=== PATIENT | female | born 1945 | race Asian ===

== ENCOUNTER 2016-11-10 15:57 | Emergency (ER) | payer MEDICARE, OTHER ==
[~2016-11-10] VITALS: Ht 157.5 cm; Wt 61.7 kg
[~2016-11-10 15:57] MED LIST: AMLO10TA2 PO; COZAAR PO; INSU100V7 SQ; METF10002 PO; METO50TA3 PO; SIMV10TA6 PO
[2016-11-10] MEDS ORDERED: INSU300I SQ (16:09)
[2016-11-10] MEDS ORDERED: IV NORMAL SALINE 500 ML BAG IV ONE (16:45)
[2016-11-10 17:10] LABS: BASOPHILS # (AUTO) 0.1 K/uL (0.0-8.0); BASOPHILS % (AUTO) 0.6 % (0.0-2.0); EOSINOPHILS # (AUTO) 0.1 K/uL (0.0-0.7); EOSINOPHILS % (AUTO) 1.3 % (0.0-7.0); HEMATOCRIT 39.6 % (37-47); HEMOGLOBIN 13.1 G/DL (12.0-16.0); LYMPHOCYTES % (AUTO) 26.6 % (20.5-51.5); MEAN CORPUSCULAR HEMOGLOBIN 29.2 UUG (27.0-31.0); MEAN CORPUSCULAR HGB CONC 33 g/dL (32.0-37.0); MEAN CORPUSCULAR VOLUME 88.1 FL (81.0-99.0); MONOCYTES # (AUTO) 0.5 K/UL (0.1-1.30); MONOCYTES % (AUTO) 4.2 % (0.0-11.0); NEUTROPHILS # (AUTO) 7.5 K/UL (1.8-8.9); NEUTROPHILS % (AUTO) 67.3 % (38.5-71.5); PLATELET COUNT (AUTO) 307 K/UL (150-450); WHITE BLOOD COUNT (AUTO) 11.2 K/UL (4.0-11.2)
[2016-11-10 17:13] LABS: CARBON DIOXIDE 25 mmol/L (21-32); CHLORIDE 92 mmol/L (98-107); CREATININE 1.1 mg/dL (0.6-1.3); GLUCOSE 221 mg/dL (74-106); POTASSIUM 4.9 mmol/L (3.5-5.1); UREA NITROGEN, BLOOD 17 mg/dL (7-18)
[2016-11-10 17:19] LABS: ALANINE AMINOTRANSFERASE 25 U/L (14-59); ALKALINE PHOSPHATASE 76 U/L (50-136); ASPARTATE AMINOTRANSFERASE 25 U/L (15-37); BILIRUBIN,DIRECT 0.2 mg/dL (0.0-0.2); BILIRUBIN,TOTAL 0.7 mg/dL (0.2-1.0); TOTAL PROTEIN, SERUM 9.1 g/dL (6.4-8.2)
--- NOTE | 2016-11-10 18:07 | NUR ---
Patient is eating dinner with good appetite, NAd, denies dizziness at this time
--- NOTE | 2016-11-10 18:14 | NUR ---
IV removed. Catheter intact and site benign. Pressure and 4x4 gauze applied to site. No bleeding noted. Patient discharged to home in stable conditon. Written and verbal after care instructions given to patient. Patient verbalizes understanding of instructions.
== END 2016-11-10 18:15 | disposition home or self-care (01) ==
LOC: ER 16:03
DX: R42 Dizziness and giddiness (principal); I10 Essential (primary) hypertension; F41.9 Anxiety disorder, unspecified; Z79.4 Long term (current) use of insulin; E11.9 Type 2 diabetes mellitus without complications
CPT/HCPCS: 36415; 80048; 80076; 84484; 85025; 85730; 93005; 96360; 99285; A4663; J7040; 70030-TC

== ENCOUNTER 2017-02-10 07:46 | Inpatient (IN) | payer OTHER, MEDICARE ==
[~2017-02-10] VITALS: Ht 157.5 cm; Wt 61.2 kg
[~2017-02-10 07:46] MED LIST changes: -INSU100V7 SQ; +INSU300I SQ
--- NOTE | 2017-02-10 07:58 | NUR ---
Dr Zambrano at the bedside for eval and exam.
[2017-02-10 08:28] LABS: BASOPHILS # (AUTO) 0.1 K/uL (0.0-8.0); BASOPHILS % (AUTO) 1.2 % (0.0-2.0); EOSINOPHILS # (AUTO) 0.1 K/uL (0.0-0.7); EOSINOPHILS % (AUTO) 1.2 % (0.0-7.0); HEMATOCRIT 33.1 % (31.2-41.9); HEMOGLOBIN 11.8 g/dL (10.9-14.3); LYMPHOCYTES # (AUTO) 2.1 K/uL (20.0-40.0); LYMPHOCYTES % (AUTO) 24.3 % (20.5-51.5); MEAN CORPUSCULAR HEMOGLOBIN 31.6 uug (24.7-32.8); MEAN CORPUSCULAR HGB CONC 36 g/dL (32.3-35.6); MEAN CORPUSCULAR VOLUME 88.7 fL (75.5-95.3); MONOCYTES # (AUTO) 0.5 K/uL (2.0-10.0); MONOCYTES % (AUTO) 5.4 % (0.0-11.0); NEUTROPHILS # (AUTO) 5.8 K/uL (1.8-8.9); NEUTROPHILS % (AUTO) 67.9 % (38.5-71.5); PLATELET COUNT (AUTO) 271 K/uL (179-408); RED BLOOD CELL COUNT(AUTO) 3.74 MIL/uL (3.63-4.92); WHITE BLOOD COUNT (AUTO) 8.6 K/uL (3.8-11.8)
[2017-02-10 08:36] LABS: CARBON DIOXIDE 25 mmol/L (21-32); CHLORIDE 90 mmol/L (98-107); CREATININE 0.9 mg/dL (0.6-1.3); GLUCOSE 206 mg/dL (74-106); POTASSIUM 4.2 mmol/L (3.5-5.1); UREA NITROGEN, BLOOD 16 mg/dL (7-18)
[2017-02-10 08:42] LABS: ALANINE AMINOTRANSFERASE 29 U/L (14-59); ALKALINE PHOSPHATASE 61 U/L (50-136); ASPARTATE AMINOTRANSFERASE 21 U/L (15-37); BILIRUBIN,DIRECT 0.2 mg/dL (0.0-0.2); BILIRUBIN,TOTAL 0.8 mg/dL (0.2-1.0); TOTAL PROTEIN, SERUM 7.8 g/dL (6.4-8.2)
[2017-02-10 08:56] LABS: THYROID STIMULATING HORMONE 1.015 mIU/mL (0.358-3.740)
--- NOTE | 2017-02-10 09:05 | NUR ---
belonging list completed and MRSA collected and sent to lab.
[2017-02-10 09:20] LABS: *BILIRUBIN,URIN NEGATIVE (NEGATIVE); *BLOOD, URINE Trace-lysed (NEGATIVE); *CLARITY,URINE CLEAR (CLEAR); *COLOR,URINE YELLOW (YELLOW); *KETONES,URINE NEGATIVE (NEGATIVE); *PROTEIN,URINE 1+ (NEGATIVE); *UROBILINOGEN,URINE 0.2 E.U./dl (NORMAL); LEUKOCYTE ESTERASE ,URINE NEGATIVE (NEGATIVE); NITRITE, URINE NEGATIVE (NEGATIVE)
--- NOTE | 2017-02-10 09:20 | NUR ---
NEW PATIENT TO ROOM 204 AWAKE ALERT COOPERATE WELL NO PAIN OR SOB VS TAKEN STABLE STATE HUNGRY ON FALL PRECAUTION BED ALARM ON AND CALL LIGHT WITHIN REACH
[2017-02-10 09:30] VITALS: BP 156/52
[2017-02-10 09:43] LABS: UGLUCOSE 2+ (NEGATIVE)
[2017-02-10 09:45] LABS: BACTERIA,URINE NONE SEEN /HPF (NONE SEEN); RBC,URINE 0-3 /HPF (0-3); SQUAMOUS EPITHELIAL CELL,UR FEW /HPF (NONE SEEN); WBC,URINE 0-3 /HPF (0-3)
--- NOTE | 2017-02-10 10:00 | NUR ---
IVF INFUSION WELL EAT BREAKFAST WITH GOOD APPETITE NO PAIN OR N/V
[2017-02-10] MEDS ORDERED: METO25TA3 PO (10:32)
[2017-02-10] MEDS ORDERED: SIMV20TA2 PO (10:33)
[2017-02-10] MEDS ORDERED: LOSA100T3 PO (10:34)
[2017-02-10 12:00] VITALS: BP 122/88
[2017-02-10 15:00] VITALS: BP 129/51
--- NOTE | 2017-02-10 18:00 | NUR ---
HEMODYNAMIC STATUS STABLE PAIN UNDER CONTROL SAFETY MEASURE PROVIDED CALL GARCIA IN REACH
--- NOTE | 2017-02-10 19:25 | NUR ---
Pt alert, awake, in room in no s/s of distress. States she refuses routine Cozaar at this time. BP noted 111/40. Denies any headaches, dizziness, or pain. Currently on NS 0.9% @70 ml/hr. Continue to monitor.
[2017-02-10 22:00] VITALS: BP 111/40
--- NOTE | 2017-02-11 01:50 | NUR ---
Pt's blood sugar noted 70. [place] juice and apple juice including saltine crackers given. Continue to monitor for any s/s of hypo/hyperglycemia. Alert and oreinted x 3.
--- NOTE | 2017-02-11 06:00 | NUR ---
Pt awake in room in no s/s of hypo/hyperglycemia. Stated she wants blood sugar check later. BP noted 121/55. Denies any pain. Lab drawn at this time.
[2017-02-11 06:20] LABS: BASOPHILS % (AUTO) 0.5 % (0.0-2.0); EOSINOPHILS # (AUTO) 0.1 K/uL (0.0-0.7); EOSINOPHILS % (AUTO) 1.6 % (0.0-7.0); HEMOGLOBIN 11.4 G/DL (12.0-16.0); LYMPHOCYTES # (AUTO) 3.1 K/UL (0.8-4.8); LYMPHOCYTES % (AUTO) 40.7 % (20.5-51.5); MEAN CORPUSCULAR HEMOGLOBIN 30.9 UUG (27.0-31.0); MEAN CORPUSCULAR HGB CONC 35 g/dL (32.0-37.0); MEAN CORPUSCULAR VOLUME 89.5 FL (81.0-99.0); MONOCYTES # (AUTO) 0.5 K/UL (0.1-1.30); MONOCYTES % (AUTO) 5.9 % (0.0-11.0); NEUTROPHILS % (AUTO) 51.3 % (38.5-71.5); PLATELET COUNT (AUTO) 254 K/UL (150-450); RED BLOOD CELL COUNT(AUTO) 3.69 MIL/UL (4.2-5.4); WHITE BLOOD COUNT (AUTO) 7.7 K/UL (4.0-11.2)
[2017-02-11 06:35] LABS: CARBON DIOXIDE 26 mmol/L (21-32); CHLORIDE 97 mmol/L (98-107); CHOLESTEROL 74 mg/dL (<200); CREATININE 0.9 mg/dL (0.6-1.3); GLUCOSE 82 mg/dL (74-106); HDL CHOLESTEROL 43 mg/dL (40-60); MAGNESIUM 1.6 mg/dL (1.8-2.4); PHOSPHOROUS 3.1 mg/dL (2.5-4.9); POTASSIUM 4.1 mmol/L (3.5-5.1); TRIGLYCERIDES 56 MG/DL (30-150); UREA NITROGEN, BLOOD 14 mg/dL (7-18); URIC ACID 3.7 mg/dL (2.6-6.0)
[2017-02-11 07:59] LABS: THYROID STIMULATING HORMONE 0.757 mIU/mL (0.358-3.740)
--- NOTE | 2017-02-11 08:00 | NUR ---
Pt ambulates to bathroom independently with good gait balance. Pt anxious of wanting to go home today. Discussed plan of care today re: discharge home and restriction of free fluids. Pt agreeable with plan of care. Call light is within reach.
[2017-02-11 08:09] VITALS: BP 131/48
--- NOTE | 2017-02-11 11:15 | NUR ---
Pt seen by Dr mast reinforced restrict free fluid with patient. Discharge instructions given to patient. Pt verbalized understanding. IV d/c. Pt request to f/u with her own PMD re: vaccinations. Pt ok leaving without pharmacy education on her meds. "I know my medications." Pt is in no acute distress upon discharge.
== END 2017-02-11 11:15 | disposition home or self-care (01) | DRG 424 ==
LOC: ER 07:46 → TELE 09:01 → MED 11:50
PROVIDERS: ADMIT Internal Medicine; ATTEND Internal Medicine
DX: E22.2 Syndrome of inappropriate secretion of antidiuretic hormone (principal); E11.9 Type 2 diabetes mellitus without complications; I10 Essential (primary) hypertension; E78.5 Hyperlipidemia, unspecified; F41.9 Anxiety disorder, unspecified
CPT/HCPCS: 36415; 70030-TC; 71010; 83735; 84100; 84300; 84443; 84550; 85025; 93005; A4663; J2060; J7030

== ENCOUNTER 2017-07-26 09:50 | Emergency (ER) | payer MEDICARE, OTHER ==
[~2017-07-26] VITALS: Ht 154.9 cm; Wt 58.5 kg
[~2017-07-26 09:50] MED LIST changes: -COZAAR PO; +LOSA100T3 PO; -METF10002 PO; +METF10004 PO; +METO25TA3 PO; -METO50TA3 PO; -SIMV10TA6 PO; +SIMV20TA2 PO
[2017-07-26] MEDS ORDERED: LISINOPRIL (10:05)
[2017-07-26] MEDS ORDERED: ACETAMINOPHEN ES 500 MG TABLET PO ONE (10:15)
[2017-07-26] MEDS ORDERED: ACETAMINOPHEN ES 500 MG TABLET ONE (10:20)
--- NOTE | 2017-07-26 10:30 | NUR ---
PT AT BEDSIDE.
--- NOTE | 2017-07-26 10:34 | NUR ---
[facility] OFFICER AT BEDSIDE.
[2017-07-26 10:40] LABS: BASOPHILS # (AUTO) 0.1 K/uL (0.0-8.0); EOSINOPHILS # (AUTO) 0.5 K/uL (0.0-0.7); EOSINOPHILS % (AUTO) 6.1 % (0.0-7.0); HEMATOCRIT 36.7 % (31.2-41.9); HEMOGLOBIN 12.5 g/dL (10.9-14.3); LYMPHOCYTES # (AUTO) 2.1 K/uL (20.0-40.0); LYMPHOCYTES % (AUTO) 27.4 % (20.5-51.5); MEAN CORPUSCULAR HGB CONC 34 g/dL (32.3-35.6); MEAN CORPUSCULAR VOLUME 87.9 fL (75.5-95.3); MONOCYTES # (AUTO) 0.5 K/uL (2.0-10.0); MONOCYTES % (AUTO) 6.9 % (0.0-11.0); NEUTROPHILS # (AUTO) 4.6 K/uL (1.8-8.9); NEUTROPHILS % (AUTO) 58.6 % (38.5-71.5); PLATELET COUNT (AUTO) 263 K/uL (179-408); RED BLOOD CELL COUNT(AUTO) 4.18 MIL/uL (3.63-4.92); WHITE BLOOD COUNT (AUTO) 7.8 K/uL (3.8-11.8)
[2017-07-26 10:41] LABS: CARBON DIOXIDE 26 mmol/L (21-32); CHLORIDE 103 mmol/L (98-107); GLUCOSE 218 mg/dL (74-106); POTASSIUM 4.2 mmol/L (3.5-5.1); UREA NITROGEN, BLOOD 16 mg/dL (7-18)
[2017-07-26 11:01] LABS: ALANINE AMINOTRANSFERASE 43 U/L (14-59); ALKALINE PHOSPHATASE 73 U/L (50-136); ASPARTATE AMINOTRANSFERASE 27 U/L (15-37); BILIRUBIN,DIRECT 0.2 mg/dL (0.0-0.2); BILIRUBIN,TOTAL 0.8 mg/dL (0.2-1.0); TOTAL PROTEIN, SERUM 7.9 g/dL (6.4-8.2)
[2017-07-26] MEDS ORDERED: BENZONATATE 100 MG CAPSULE ONE (11:52)
--- NOTE | 2017-07-26 11:58 | NUR ---
Patient discharged to home in stable conditon. Written and verbal after care instructions given. Patient verbalizes understanding of instructions.PT WALKS IN STEADY GAIT. HOSPITAL SANDWICH WAS GIVEN TO PT EARLIER PER PT REQUEST. PT WITH SO,
[2017-07-26 11:59] VITALS: BP 131/61
[2017-07-26] MEDS ORDERED: BENZONATATE 100 MG CAPSULE PO ONE (12:00)
== END 2017-07-26 12:00 | disposition home or self-care (01) ==
LOC: ER 09:50
DX: S20.219A Contusion of unspecified front wall of thorax, initial encounter (principal); J20.8 Acute bronchitis due to other specified organisms; B97.89 Other viral agents as the cause of diseases classified elsewhere; I10 Essential (primary) hypertension; E11.9 Type 2 diabetes mellitus without complications; Z90.89 Acquired absence of other organs; Z90.49 Acquired absence of other specified parts of digestive tract; Z79.4 Long term (current) use of insulin; Z79.84 Long term (current) use of oral hypoglycemic drugs; Z79.899 Other long term (current) drug therapy; V43.52XA Car driver injured in collision with other type car in traffic accident, initial encounter; Y93.89 Activity, other specified; Y92.410 Unspecified street and highway as the place of occurrence of the external cause; Y99.8 Other external cause status
CPT/HCPCS: 36415; 70030-TC; 71045; 85025; 85730; 93005; A4663; A9150